=== PATIENT | male | born 1990 | race Caucasian/White ===

== ENCOUNTER 2019-03-22 10:59 | Emergency (ER) | payer BC, SELFPAY ==
[2019-03-22 11:03] VITALS: BP 130/70; PULSE 57; RESP 15; TEMP 37; O2SAT 98
[2019-03-22 11:08] VITALS: BP 118/71; BP 130/70; PULSE 57; PULSE 58
--- NOTE | 2019-03-22 11:18 | ED.GENADUL_ITS ---
Discharge Plan Disposition Patient Disposition: HOME Condition: Improving Discharge Details Chief Complaint: Nausea/Vomit/Diar Clinical Impression: Gastroenteritis Primary Care Provider: Kin Dubois ED Provider: Jonah Reyes Home Meds and New Rx's Prescriptions: New ondansetron HCl [Zofran] 4 mg tablet 4 mg PO QID PRN (Reason: nausea and vomiting) Qty: 10 RF: 0 Discharge Instructions Instructions: Gastroenteritis (ED) Additional Instructions: Home to rest today. Small, frequent sips of fluids to maintain hydration. May use Zofran as needed for nausea. Return if you develop a fever, abdominal pain, recurrent vomiting, or any other acute concerns. Stand Alone Forms: Work Release Medical Decision Making 29-year-old healthy male presents with 12+ hours of loose watery stool with multiple episodes of emesis. He does not have blood in vomit or stool. His vital signs are stable. His exam is reassuring but does reveal mild abdominal tenderness. Differential diagnosis includes gastroenteritis, mesenteric adenitis, dehydration. IV placed, labs obtained, patient given antiemetic, ketorolac, 2 L normal saline. Patient has a unremarkable CBC, chemistries are reassuring, lipase normal. He is improved following fluids. Tolerated fluids by mouth. He likely has a gastroenteritis will benefit from ongoing hydration and use of antiemetic at home. Lab Data Lab results reviewed: Yes I reviewed the patient's lab results. Labs: Laboratory Results - last 24 hr 03/22/19 03/22/19 11:30 11:30 WBC 8.02 RBC 5.26 Hgb 16.1 Hct 46.4 MCV 88.2 MCH 30.6 MCHC 34.7 RDW 12.3 Plt Count 303 MPV 10.0 Immature Gran % 0.4 Neutrophils % 46.3 Lymphocytes % 40.1 Monocytes % 10.3 Eosinophils % 2.5 Basophils % 0.4 Absolute Neutrophils 3.71 Absolute Lymphocytes 3.22 Absolute Monocytes 0.83 H Absolute Eosinophils 0.20 Absolute Basophils 0.03 Sodium 143 Potassium 3.8 Chloride 105 Carbon Dioxide 30.9 Anion Gap 7.1 BUN 16 Creatinine 1.03 Estimated GFR/1.73 m2 >= 60.00 Glucose 95 Calcium 8.5 Total Bilirubin 0.4 AST 19 ALT 35 Alkaline Phosphatase 39 L Total Protein 7.0 Albumin 3.8 Lipase 121 HPI General Mode of arrival: ambulatory . Date/Time Provider Initiated Documentation: 03/22/19 11:05 . Limitations to Documentation: no limitations . Information obtained by: patient . History of Present Illness 29 year old M presents to the emergency department with the chief complaint of Nausea, vomiting, diarrhea, described as moderate, Quality is described as constant, and is localized to the abdomen. Patient reports no radiation. Patient started experiencing this hour(s) and it has been constant. No relieving factors improve symptom(s), No exacerbating factors reported . Patient notes loss of appetite, nausea/vomiting and other (Diarrhea. No bloody stool or emesis). Patient did receive the following treatments prior to arrival, none Related Data Home Medications Medication Instructions Recorded Confirmed ondansetron HCl [Zofran] 4 mg PO QID PRN #10 tab 03/22/19 Previous Rx's Medication Instructions Recorded ondansetron HCl [Zofran] 4 mg PO QID PRN #10 tab 03/22/19 Allergies Allergy/AdvReac Type Severity Reaction Status Date / Time No Known Allergies Allergy Unverified 03/22/19 11:03 General Stated Complaint: Nausea/Vomit/Diar KAREN: 3 Review of Systems Review of Systems Narrative: No suspicious food contacts. No recent travel. 6 systems reviewed and otherwise negative [facility] Social History Smoking/Tobacco Use Status: Current every day Tobacco Type: e-cigarettes Alcohol Intake: never Drug use: Never Substance use type: does not use Do you feel safe at home: Yes Do you feel safe in your relationship?: Yes Exam Narrative Exam Narrative: GEN: awake, alert, oriented 3. Pleasant, well groomed, interactive. HEAD: Normocephalic, atraumatic ENT: Mucous membranes dry, oropharynx unremarkable, External ear exam unremarkable EYES: PERRL, EOMI NECK: Full ROM, no GRAHAM, no menigismus CHEST/RESP: Nontender, clear to auscultation bilateral, no wheeze/rhonchi/rales CARDIOVASCULAR: RRR, no murmur, rub hailey. 2+ Rad pulse bilateral ABDOMEN: Soft, minimal tenderness without rebound or guarding, no mass. +Bowel sounds EXT: Full ROM, no edema, no rash Neuro: Grossly normal neurologic exam, conversant, interactive. Psych: Speech fluent, thoughts congruent, affect normal Course Vital Signs Vital signs: Vital Signs Temperature 37 C 03/22/19 11:03 Pulse 57 L 03/22/19 11:03 Respiratory Rate 15 03/22/19 11:03 Blood Pressure 130/70 03/22/19 11:03 Pulse Oximetry 98 03/22/19 11:03 Temperature 37 C 03/22/19 11:03 Temperature Source Temporal Artery Scan 03/22/19 11:03 Pulse 57 L 03/22/19 11:08 Respiratory Rate 15 03/22/19 11:03 Respiratory Effort Non-Labored 03/22/19 11:07 Blood Pressure 130/70 03/22/19 11:08 Blood Pressure Position Sitting 03/22/19 11:03 Pulse Oximetry 98 03/22/19 11:03 Oxygen Delivery Method Room Air 03/22/19 11:03 Oxygen Flow Rate 0 03/22/19 11:03 Pain Level 8 03/22/19 11:03
[2019-03-22] MEDS: Normal Saline 1,000 ML 1000 ML IV ×2 (11:30→12:30)
[2019-03-22] MEDS: Ondansetron 4 MG/2 ML VIAL IVP (11:32)
[2019-03-22] MEDS: Ketorolac 15 MG/ML VIAL IVP (11:33)
[2019-03-22 11:47] LABS: Abs Immature Grans 0.03 k/cumm (0.0-0.09); Absolute Basophil Count 0.03 k/cumm (0.0-0.2); Absolute Lymphocyte Count 3.22 k/cumm (1.2-3.4); Absolute Monocyte Count 0.83 k/cumm (0.11-0.7); Absolute Neutrophil Count 3.71 k/cumm (1.2-6.7); Basophils % 0.4; Eosinophils % 2.5; HCT 46.4 % (40.0-50.0); HGB 16.1 g/dL (13.5-17.5); Immature Grans % 0.4; Lymphocytes % 40.1; Mean Corp. HGB Concentration 34.7 g/dL (32.0-36.0); Mean Corpuscular Hemoglobin 30.6 pg (27.0-33.0); Mean Corpuscular Volume 88.2 fL (80-95); Monocytes % 10.3; Neutrophils % 46.3; Platelet Count 303 x1000/uL (130-400); RBC 5.26 m/cumm (4.50-6.00); RBC Distribution Width 12.3 % (11.8-14.1); White Blood Cell Count 8.02 k/cumm (4.4-10.8)
[2019-03-22 12:05] LABS: ALT 35 U/L (16-63); AST 19 U/L (15-37); Albumin 3.8 g/dL (3.4-5.0); Alkaline Phosphatase 39 U/L (46-116); Anion Gap 7.1 mmol/L (3-11); BUN 16 mg/dL (7-18); Bilirubin, Total 0.4 mg/dL (0.2-1.0); CO2 30.9 mmol/L (21.0-32.0); CREATININE 1.03 mg/dL (0.70-1.30); Calcium 8.5 mg/dL (8.5-10.1); Chloride 105 mmol/L (98-107); Glucose 95 mg/dL (70-100); Lipase 121 U/L (73-393); Potassium 3.8 mmol/L (3.5-5.1); Sodium 143 mmol/L (136-145)
[2019-03-22 13:35] VITALS: BP 105/57; PULSE 72; RESP 15; TEMP 36.7; O2SAT 100
[2019-03-22 13:41] VITALS: BP 105/57; PULSE 72; RESP 15; TEMP 36.7; O2SAT 100
== END 2019-03-22 13:43 | disposition home or self-care (01) ==
PROVIDERS: Emergency Provider Emergency Medicine; PCP Pediatrics
DX: K52.9 Noninfective gastroenteritis and colitis, unspecified (principal)
CPT/HCPCS: 36415; 80053; 83690; 96361; 96374; 96375; 99284; 85025; J1885; J2405

== ENCOUNTER 2019-05-11 18:54 | Emergency (ER) | payer BC, SELFPAY ==
[2019-05-11 18:58] VITALS: BP 130/67; PULSE 81; RESP 16; TEMP 36.6; O2SAT 97
--- NOTE | 2019-05-11 19:03 | W.ED.GENAD ---
Discharge Plan Disposition Patient Disposition: HOME Condition: Good Discharge Details Chief Complaint: RespSymp Clinical Impression: URI (upper respiratory infection), Vomiting Primary Care Provider: None,None ED Provider: Adrian Reyna Home Meds and New Rx's Prescriptions: New ondansetron HCl [Zofran] 4 mg tablet 4 mg PO Q8H Qty: 7 RF: 0 Discharge Instructions Instructions: Upper Respiratory Infection (ED), Acute Nausea and Vomiting (ED) Additional Instructions: Your strep test is negative, I suspect her symptoms are likely from a virus. Please take Zofran as needed. Please continue to drink plenty of fluids, and avoid any significant solids for the next 48 to 72 hours. I would recommend 10 to 12 cups of fluid per day. gradually increase with oatmeal, rice, bananas and applesauce. If you notice any worsening of your symptoms, or any new symptoms such as vomiting, diarrhea, fever, chills, shortness of breath, chest pain, numbness, weakness, or fainting , please return immediately to the emergency department for reevaluation. Please follow up with your primary care provider as soon as possible for reassessment and reevaluation. As always, it was a pleasure participating in your medical care today. Stand Alone Forms: Work Release Medical Decision Making Is a pleasant 29-year-old male who presents with 48 hours of URI-like symptoms in conjunction with vomiting that began this evening. He has been able to tolerate fluids well and has been drinking throughout the day, urinating regularly. He only vomits when he eats solid foods. He denies any abdominal pain just nausea. Physical exam demonstrates a nontender abdomen, no clinical meningitis, no evidence of acute surgical abdomen. No abnormality in the posterior oropharynx. Signs and symptoms appear clinically consistent with a mild upper respiratory infection, I suspect he has a mild viral gastroenteritis as well. Symptoms appearing consistent with severe flu at this time. He is not a candidate for Tamiflu, and I see no indication for testing for this at this time. Strep test was negative. Patient continues to tolerate liquids well. Will give Zofran as needed for nausea, work note per his request, recommend continued fluids, and rest. Discussed red flags for which to return. I have extensively reviewed the treatment plan and discharge instructions with the patient. I have addressed all patient concerns at this time. The patient was made aware of what symptoms to monitor for that would warrant a return to the emergency department. Discussed the plan with the patient, they demonstrate verbal understanding and agreement with our assessment and plan at this time. HPI General Date/Time Provider Initiated Documentation: 05/11/19 18:55. HPI Narrative: This is a 29-year-old male who presents for runny nose, mild congestion, 2-3 episodes of vomiting that started today. He denies fever, headache, chills. He denies any hematochezia, hematemesis. He denies any alcohol intake. He does not smoke marijuana. He denies any other sick contacts. He has no other complaints at this time. Although he does admit to nausea he denies any abdominal pain. No other complaints at this time. Related Data Home Medications Medication Instructions Recorded Confirmed ondansetron HCl [Zofran] 4 mg PO Q8H #7 tab 05/11/19 Previous Rx's Medication Instructions Recorded ondansetron HCl [Zofran] 4 mg PO Q8H #7 tab 05/11/19 Allergies Allergy/AdvReac Type Severity Reaction Status Date / Time No Known Allergies Allergy Unverified 03/22/19 11:03 General Stated Complaint: RespSymp KAREN: 4 Review of Systems All systems reviewed & are unremarkable except as noted in HPI and below PFSH Social History Smoking/Tobacco Use Status: Current every day Tobacco Type: e-cigarettes Alcohol Intake: never Drug use: Never Substance use type: does not use Do you feel safe at home: Yes Do you feel safe in your relationship?: Yes Exam Narrative Exam Narrative: 1.Const: Well-nourished, Well-developed, appearing stated age 2.Eyes: PERRL, no conjunctival injection, and symmetrical lids. 3.ENT: Atraumatic external nose and ears. Moist MM. Neck: Symmetric, trachea midline, No thyromegaly. No tonsillar exudate, no significant tonsillar swelling. Tympanic membranes are unremarkable bilaterally. Patient demonstrates good movement of cervical neck. There is no nuchal rigidity, no nuchal tenderness. Patient is able to flex the neck without any difficulty or significant pain. Negative Kernig's and Brudzinski sign. 4.CVS: +S1/S2, No murmurs or gallops. Peripheral pulses 2+ and equal in all extremities. Brisk capillary refill in all extremities. 5.RESP: Unlabored respiratory effort. Clear to auscultation bilaterally. No wheezes rales or rhonchi 6.GI: Soft, Nontender/Nondistended, No hepatosplenomegaly. No guarding or rebound. No evidence of an acute surgical abdomen. 7.MSK: Normocephalic/Atraumatic, Extremities w/o deformity or ttp No cyanosis or clubbing, Normal movement of all extremities 8.Skin: Warm, Dry. No rashes or lesions. 9.Neuro: wares sorter II-XII grossly intact. Sensation grossly intact, no focal neurologic deficits. 10.Psych: (AAO) x3. Appropriate mood and affect Course Vital Signs Vital signs: Vital Signs Temperature 36.6 C 05/11/19 18:58 Pulse 81 05/11/19 18:58 Respiratory Rate 16 05/11/19 18:58 Blood Pressure 130/67 05/11/19 18:58 Pulse Oximetry 97 05/11/19 18:58 Temperature 36.6 C 05/11/19 18:58 Temperature Source Skin 05/11/19 18:58 Pulse 81 05/11/19 18:58 Respiratory Rate 16 05/11/19 18:58 Blood Pressure 130/67 05/11/19 18:58 Blood Pressure Position Supine 05/11/19 18:58 Pulse Oximetry 97 05/11/19 18:58 Oxygen Delivery Method Room Air 05/11/19 18:58 Oxygen Flow Rate 0 05/11/19 18:58
[2019-05-11] MEDS: Ondansetron O.D.T. 4 MG TABEF PO (19:06)
== END 2019-05-11 19:15 | disposition home or self-care (01) ==
PROVIDERS: Emergency Provider Student in an Organized Health Care Education/Training Program
DX: J06.9 Acute upper respiratory infection, unspecified (principal); R11.2 Nausea with vomiting, unspecified; R09.81 Nasal congestion
CPT/HCPCS: 87880; 99283; 87081

== ENCOUNTER 2020-08-04 09:16 | Emergency (ER) | payer SELFPAY ==
[2020-08-04 09:23] VITALS: BP 141/78; PULSE 71; RESP 16; TEMP 36.4; O2SAT 98
--- NOTE | 2020-08-04 09:33 | W.ED.GENAD ---
Discharge Plan Disposition Patient Disposition: HOME Condition: Stable Discharge Details Clinical Impression: Nausea vomiting and diarrhea Primary Care Provider: None,None ED Provider: Markel Tate Home Meds and New Rx's Prescriptions: New ondansetron HCl [Zofran] 4 mg tablet 4 mg PO Q8H PRNQty: 10 RF: 0 Discharge Instructions Instructions: Acute Nausea and Vomiting (ED), Acute Diarrhea (ED) Additional Instructions: Laboratory values do not reveal any obvious emergent process. Zofran as directed. Clear liquid diet, advance as tolerated. [id number] Imodium as directed for symptomatic control. Please watch for new or worsening symptoms and return to the ER for any concerns. Lastly, please contact your primary care provider tomorrow to discuss outpatient reevaluation. Work note given for this evening Stand Alone Forms: Work Release Discharge Data Discharge Date/Time-TO BE ENTERED AT DEPARTURE: 08/04/20 11:43 Medical Decision Making 22-year-old gentleman, no significant past medical history, went to bed last night asymptomatic, woke up around midnight with nausea, vomiting, diarrhea, abdominal pain after vomiting. He reports his last episode was sometime around 8-830 this morning. He reports mild nausea now otherwise asymptomatic. Clinically he appears well, nontoxic. Nonsurgical abdominal examination. No sick contact or obvious bad food exposures. Likely viral in nature but certainly cannot rule out etiologies such as appendicitis, biliary colic, etc. Will obtain IV access, give IV fluids, Zofran, CBC, CMP, lipase, urinalysis. Upon reevaluation patient is resting comfortably, reports nausea is improving with the Zofran. Laboratory values are unremarkable for obvious emergent process. Patient unable to provide a urine sample. No vomiting or diarrhea while being observed in the ER. Patient feels well, would like to try to go home and eat. He was given strict return precautions. Given a prescription for Zofran, will take [id number] Imodium, and I gave a work note for tonight. Patient comfortable with this plan and has no additional questions or concerns. Medical Records Medical records reviewed: Yes I reviewed the patient's medical records. Lab Data Lab results reviewed: Yes I reviewed the patient's lab results. Lab results narrative: Laboratory Tests Range/Units 08/04/20 08/04/20 09:35 09:35 WBC (4.4-10.8) 10^3/uL 7.32 RBC (4.36-5.78) 10^6/uL 5.59 Hgb (13.5-17.5) g/dL 17.1 Hct (40.0-50.0) % 49.2 MCV (80-95) fL 88.0 MCH (27.0-33.0) pg 30.6 MCHC (32.0-36.0) % 34.8 RDW (11.8-14.1) % 11.8 Plt Count (130-400) 10^3/uL 330 MPV (8.0-11.0) fL 9.7 Immature Gran % 0.3 Neutrophils % 52.7 Lymphocytes % 35.5 Monocytes % 8.5 Eosinophils % 2.6 Basophils % 0.4 Nucleated RBC % % 0 Absolute Neutrophils (1.2-6.7) 10^3/uL 3.86 Absolute Lymphocytes (1.2-3.4) 10^3/uL 2.60 Absolute Monocytes (0.1-0.8) 10^3/uL 0.62 Absolute Eosinophils (0.0-0.7) 10^3/uL 0.19 Absolute Basophils (0.0-0.2) 10^3/uL 0.03 Sodium (136-145) mmol/L 140 Potassium (3.5-5.1) mmol/L 3.8 Chloride (98-107) mmol/L 103 Carbon Dioxide (21.0-32.0) mmol/L 28.2 Anion Gap (3-11) mmol/L 8.8 BUN (7-18) mg/dL 14 Creatinine (0.70-1.30) mg/dL 1.1 Estimated GFR/1.73 m2 (mL/min/1.73m2) >= 60.00 Glucose (74-106) mg/dL 98 Calcium (8.5-10.1) mg/dL 8.5 Total Bilirubin (0.2-1.0) mg/dL 0.4 AST (15-37) U/L 18 ALT (16-63) U/L 70 H Alkaline Phosphatase (46-116) U/L 48 Total Protein (6.4-8.2) g/dL 7.5 Albumin (3.4-5.0) g/dL 4.0 Lipase (73-393) U/L 111 HPI General Mode of arrival: ambulatory. Date/Time Provider Initiated Documentation: 08/04/20 09:19. Limitations to Documentation: no limitations. Information obtained by: patient. HPI Narrative: This is a 30-year-old male, denies any significant past medical history. He states that he went to bed last night asymptomatic, woke up around midnight with nausea, vomiting, diarrhea. Denies any black tarry stools or bright red blood in his stools. Denies sick contacts or bad food exposure. Reports mild diffuse abdominal pain after vomiting; however, he has not vomited in over 45 minutes and currently denies any abdominal discomfort. Has not taken any [id number]-[id number] medications for his symptoms. Nothing makes his symptoms worse or better. Patient states that he will likely need a work note for tonight. He denies fever, headache, chest pain, shortness of breath, back pain, dysuria, hematuria, or constipation. He states that he feels very hungry but cannot eat because he cannot hold anything down. Related Data Home Medications Medication Instructions Recorded Confirmed ondansetron HCl [Zofran] 4 mg PO Q8H PRN #10 tab 08/04/20 Previous Rx's Medication Instructions Recorded ondansetron HCl [Zofran] 4 mg PO Q8H PRN #10 tab 08/04/20 Allergies Allergy/AdvReac Type Severity Reaction Status Date / Time No Known Allergies Allergy Unverified 03/22/19 11:03 General Stated Complaint: Nausea/Vomit/Diar KAREN: 3 Review of Systems Constitutional Constitutional: Denies fatigue, Denies fever(s) and Denies headache(s) ENT Ears, Nose, Mouth, and Throat: Denies headache(s) Cardiovascular Cardiovascular: Denies chest pain and Denies dyspnea Respiratory Respiratory: Denies dyspnea Gastrointestinal Gastrointestinal: Reports abdominal pain, Denies constipation, Reports diarrhea, Reports nausea and Reports vomiting Genitourinary Genitourinary: Denies dysuria Musculoskeletal Musculoskeletal: Denies back pain Integumentary/Breasts Skin/Breast: Denies rash Neurologic Neurologic: Denies headache(s) Endocrine Endocrine: Denies fatigue [facility] Social History Smoking/Tobacco Use Status: Current every day Tobacco Type: e-cigarettes Smoking risk assessment performed?: Yes Alcohol Intake: never Drug use: Never Substance use type: does not use Do you feel safe at home: Yes Do you feel safe in your relationship?: Yes Exam Const General: cooperative, healthy appearing, comfortable and no acute distress Orientation: alert and awake [facility] Head: normal to inspection, normocephalic and atraumatic Mouth: moist mucous membranes Throat: posterior oropharynx normal Eyes General: appearance normal, both eyes and all related structures Conjunctivae: conjunctivae normal Sclera: sclerae normal Neck Neck: normal visual inspection, full ROM, trachea midline and supple Resp Effort & Inspection: normal respiratory effort and able to speak in complete sentences Auscultation: clear to auscultation bilaterally Cardio Rate: regular rate Rhythm: regular rhythm GI Inspection: normal to inspection Palpation: soft, not firm, no guarding, no pulsatile masses and nontender Auscultation: normal bowel sounds Back/Spine/Pelvis Back: No back tenderness Skin General skin exam: no rashes or lesions noted Neuro General: patient alert, patient awake, moves all extremities and no focal motor deficits Sensory Exam: no sensory deficits noted Psych Appearance: grossly normal Mental Status: mental status grossly normal Course Vital Signs Vital signs: Vital Signs Temperature 36.4 C L 08/04/20 09:23 Pulse 71 08/04/20 09:23 Respiratory Rate 16 08/04/20 09:23 Blood Pressure 141/78 H 08/04/20 09:23 Pulse Oximetry 98 08/04/20 09:23 Temperature 36.4 C L 08/04/20 09:23 Temperature Source Skin 08/04/20 09:23 Pulse 71 08/04/20 09:23 Respiratory Rate 16 08/04/20 09:23 Respiratory Effort 08/04/20 09:25 Blood Pressure 141/78 H 08/04/20 09:23 Blood Pressure Position Sitting 08/04/20 09:23 Pulse Oximetry 98 08/04/20 09:23 Oxygen Delivery Method Room Air 08/04/20 09:23 Oxygen Flow Rate 0 08/04/20 09:23 Pain Level 2 08/04/20 09:23
[2020-08-04] MEDS: Normal Saline 1,000 ML 1000 ML IV (09:35)
[2020-08-04 09:51] LABS: Abs Immature Grans 0.02 10^3/uL (0.0-0.06); Absolute Basophil Count 0.03 10^3/uL (0.0-0.2); Absolute Eosinophil Count 0.19 10^3/uL (0.0-0.7); Absolute Monocyte Count 0.62 10^3/uL (0.1-0.8); Absolute Neutrophil Count 3.86 10^3/uL (1.2-6.7); Basophils % 0.4; Eosinophils % 2.6; HCT 49.2 % (40.0-50.0); HGB 17.1 g/dL (13.5-17.5); Immature Grans % 0.3; Lymphocytes % 35.5; MCH 30.6 pg (27.0-33.0); MCHC 34.8 % (32.0-36.0); MPV 9.7 fL (8.0-11.0); Monocytes % 8.5; Neutrophils % 52.7; Nucleated RBC 0 %; Platelet Count 330 10^3/uL (130-400); RBC 5.59 10^6/uL (4.36-5.78); RDW 11.8 % (11.8-14.1); RDW-SD 38.1 fL; WBC 7.32 10^3/uL (4.4-10.8)
[2020-08-04] MEDS: Ondansetron 4 MG/2 ML VIAL IVP (10:03)
[2020-08-04 10:05] LABS: ALT 70 U/L (16-63); AST 18 U/L (15-37); Alkaline Phosphatase 48 U/L (46-116); Anion Gap 8.8 mmol/L (3-11); BUN 14 mg/dL (7-18); Bilirubin, Total 0.4 mg/dL (0.2-1.0); CO2 28.2 mmol/L (21.0-32.0); CREATININE 1.1 mg/dL (0.70-1.30); Calcium 8.5 mg/dL (8.5-10.1); Chloride 103 mmol/L (98-107); Glucose 98 mg/dL (74-106); Lipase 111 U/L (73-393); Potassium 3.8 mmol/L (3.5-5.1); Sodium 140 mmol/L (136-145); Total Protein 7.5 g/dL (6.4-8.2)
[2020-08-04 11:00] VITALS: BP 114/62; PULSE 61; RESP 16; TEMP 36.6; O2SAT 100
[2020-08-04 11:37] VITALS: BP 123/88; PULSE 69; RESP 18; TEMP 36.6; O2SAT 98
--- NOTE | 2020-08-04 11:44 | NUR.NOTE ---
pt IV dc'd by akash Echavarria. :
--- NOTE | 2020-08-04 11:44 | NUR.NOTE ---
pt did not produce urine spec during stay
== END 2020-08-04 11:43 | disposition home or self-care (01) ==
PROVIDERS: Emergency Provider Physician Assistant
DX: R11.2 Nausea with vomiting, unspecified (principal); R19.7 Diarrhea, unspecified
CPT/HCPCS: 36415; 80053; 83690; 96361; 96374; 99284; 85025; J2405

== ENCOUNTER 2023-04-20 09:21 | Emergency (ER) | payer SELFPAY ==
[2023-04-20 09:29] VITALS: BP 139/89; PULSE 73; RESP 12; TEMP 36.7; O2SAT 97
[2023-04-20 09:36] VITALS: BP 139/89; PULSE 73; RESP 12; TEMP 36.7; O2SAT 97
[2023-04-20] MEDS: Fluorescein STRIPS 100/BOX 2 MG OP (09:52)
--- NOTE | 2023-04-20 10:11 | ED.GENADUL_ITS ---
Discharge Plan Discharge Details Chief Complaint: EyeProblem Clinical Impression: Conjunctivitis Primary Care Provider: None,None ED Provider: Nati Bhandari Home Meds and New Rx's Prescriptions: New erythromycin 5 mg/gram (0.5 %) ointment 0.5 inch ophthalmic (eye) TID Qty: 3.5 0RF Discharge Instructions Instructions: Conjunctivitis (ED) Additional Instructions: Use the erythromycin ointment, half inch strip to each eye Wash your hands with soap and water Return earlier with new or worsening complaints Discharge Data Discharge Date/Time-TO BE ENTERED AT DEPARTURE: 04/20/23 10:24 Medical Decision Making 33-year-old male, upper respiratory symptoms and conjunctivitis reported, family member sick with similar symptoms Pupils equal round reactive to light and accommodation, visual acuity within normal limits, please review nursing documentation, fluorescein stain instilled bilaterally without any lesions, lids everted without foreign body, extraocular muscles intact Lungs clear to auscultation, no acute distress, stable vitals Given erythromycin ointment, will continue supportive care Return precautions reviewed and patient expressed understanding HPI General Date/Time Provider Initiated Documentation: 04/20/23 09:49 . HPI Narrative: This 33-year-old male presents with bilateral eye irritation and drainage drainage. Family is also sick with similar symptoms. reportedly has conjunctivitis and son. Denies any sore throats, fever, shortness of breath. Stop smoking approximately 12 days ago. Related Data Home Medications Medication Instructions Recorded Confirmed erythromycin 5 mg/gram (0.5 %) eye 0.5 inch ophthalmic (eye) TID #3.5 04/20/23 ointment grams Previous Rx's Medication Instructions Recorded erythromycin 5 mg/gram (0.5 %) eye 0.5 inch ophthalmic (eye) TID #3.5 04/20/23 ointment grams Allergies Allergy/AdvReac Type Severity Reaction Status Date / Time No Known Allergies Allergy Unverified 04/20/23 09:49 General Stated Complaint: EyeProblem KAREN: 4 PFSH All Active Problems (Updated 04/20/23 @ 10:20 by JOAN Daniel) Conjunctivitis (Acute) Nausea vomiting and diarrhea (Acute) Social History Smoking/Tobacco Use Status: Former Tobacco Use Quit Date: 04/07/23 Smoking risk assessment performed?: Yes Alcohol Intake: current Alcohol Intake frequency: holidays/special occasions only Alcohol type: beer Drug use: Never Substance use type: does not use Do you feel safe at home: Yes Do you feel safe in your relationship?: Yes Course Vital Signs Vital signs: Vital Signs Temperature 36.7 C 04/20/23 09:29 Pulse 73 04/20/23 09:29 Respiratory Rate 12 04/20/23 09:29 Blood Pressure 139/89 04/20/23 09:29 Pulse Oximetry 97 04/20/23 09:29 Temperature 36.7 C 04/20/23 09:36 Temperature Source Oral 04/20/23 09:36 Pulse 73 04/20/23 09:36 Respiratory Rate 12 04/20/23 09:36 Respiratory Effort Normal, Non-Labored 04/20/23 09:36 Blood Pressure 139/89 04/20/23 09:36 Blood Pressure Position Sitting 04/20/23 09:36 Pulse Oximetry 97 04/20/23 09:36 Oxygen Delivery Method Room Air 04/20/23 09:36 Oxygen Flow Rate 0 04/20/23 09:29 Pain Level 6 04/20/23 09:36 Lab/Test Results Lab/Test Results: 04/20/23 09:43 Tonsil - Not Specified Group A Streptococcus Culture - Pending POC Strep Test-LUCILA(Rapid) Start: 04/20/23 09:50 Freq: .Rapid Strep Test Status: Active Protocol: Document 04/20/23 09:51 JENNIFFER (Rec: 04/20/23 09:52 JENNIFFER [id number]) Strep test-LUCILA(Rapid)-POC POC-Strep test-LUCILA (Rapid) Negative POC-Strep test-LUCILA (Rapid) Negative PAWSS Have you Been Recently Intoxicated or Drunk Within the Last 30 days?: No Have you Ever Experienced Previous Episodes of Alcohol Withdrawal?: No Have you ever Experienced Withdrawal Seizures?: No Have you ever Experienced Delirium Tremens(DT)s?: No Have you ever undergone Alcohol Rehabilitation Treatment (i.e, inpt ot outpatient treatment programs)?: No Have you ever Experienced Blackouts?: No Have you ever Combined Alcohol with other Downers within the last 90 days?: No Have you ever Combined Alcohol with any other Substance of Abuse during the last 90 days?: No Positive Blood Alcohol level on Presentation? [PCS.BAL]: No Evidence of Increased Autonomic Activity (i.e. HR>120, tremor, sweating, agitation, nausea)?: No Result: 0
[2023-04-20 10:23] VITALS: BP 139/89; PULSE 73; RESP 12; TEMP 36.7; O2SAT 97
== END 2023-04-20 10:24 | disposition home or self-care (01) ==
LOC: ER 09:28
PROVIDERS: Emergency Provider Physician Assistant
DX: H10.9 Unspecified conjunctivitis
CPT/HCPCS: 87880; 99283; 87081

== ENCOUNTER 2024-01-16 07:02 | Emergency (ER) | payer SELFPAY ==
[2024-01-16 07:06] VITALS: BP 138/85; PULSE 79; RESP 16; TEMP 36.8; O2SAT 98
[2024-01-16 07:09] VITALS: BP 138/85; PULSE 79; RESP 16; TEMP 36.8; O2SAT 98
--- NOTE | 2024-01-16 07:18 | W.ED.GENAD ---
Discharge Plan Disposition Patient Disposition: Home Condition: Stable Discharge Details Clinical Impression: Nausea vomiting and diarrhea ED Provider: Kristina Lopez Home Meds and New Rx's Prescriptions: New ondansetron 4 mg tablet,disintegrating 4 mg PO Q8H PRN (Reason: nausea and vomiting) Qty: 30 0RF Discharge Instructions Instructions: Nausea and Vomiting, Adult ED Additional Instructions: viral testing is negative today, but since your symptoms just started this may not be accurate. if you're not feeling better you can retest in a few days Zofran given for nausea, you can continue this at home. Make sure to drink lots of water, gatorade to stay hydrated. you may continue to have some vomiting or diarrhea, but as long as its slowing down and you're able to keep liquids down, you should stay hydrated return with any concerns HPI General Date/Time Provider Initiated Documentation: 01/16/24 07:12. Limitations to Documentation: no limitations. Information obtained by: patient. HPI Narrative: 33-year-old gentleman without significant past medical history presents for evaluation of vomiting and diarrhea. He reports that symptoms started about 1 hour ago. He reports that he has vomited multiple times. He reports vomiting and diarrhea associated with crampy abdominal pain. He gets sweaty when he is vomiting but otherwise no known fever. Reports contact with neighbor that has recently been diagnosed with influenza. Denies any unusual foods or poorly cooked foods. States that he felt fine last night when he went to bed. States that his throat feels scratchy. Not significantly painful, but worse after vomiting. Related Data Home Medications ?Medication ?Instructions ?Recorded ?Confirmed ondansetron 4 mg disintegrating 4 mg PO Q8H PRN nausea and 01/16/24 tablet vomiting #30 tabs Previous Rx's ?Medication ?Instructions ?Recorded ondansetron 4 mg disintegrating 4 mg PO Q8H PRN nausea and 01/16/24 tablet vomiting #30 tabs Allergies Allergy/AdvReac Type Severity Reaction Status Date / Time No Known Allergies Allergy Unverified 01/16/24 07:08 General Stated Complaint: Nausea/Vomit/Diar KAREN: 3 Exam Narrative Exam Narrative: Review of Systems: All systems reviewed & are unremarkable except as noted in HPI and below Well-developed, no acute distress afebrile NCAT PERRL, normal conjunctiva tonsills enlarged without exudates shoddy cervical adenopathy RRR Unlabored respiratory effort, CTAB Nondistended abdomen , soft , non tender Course Vital Signs Vital signs: Vital Signs Temperature 36.8 C 01/16/24 07:06 Pulse 79 01/16/24 07:06 Respiratory Rate 16 01/16/24 07:06 Blood Pressure 138/85 01/16/24 07:06 Pulse Oximetry 98 01/16/24 07:06 Temperature 36.8 C 01/16/24 07:09 Temperature Source Oral 01/16/24 07:09 Pulse 79 01/16/24 07:09 Respiratory Rate 16 01/16/24 07:09 Respiratory Effort Normal, Non-Labored 01/16/24 07:10 Blood Pressure 138/85 01/16/24 07:09 Blood Pressure Position Sitting 01/16/24 07:09 Pulse Oximetry 98 01/16/24 07:09 Oxygen Delivery Method Room Air 01/16/24 07:09 Oxygen Flow Rate 0 01/16/24 07:09 Medical Decision Making Emergent evaluation of vomiting and diarrhea. Initial differential includes viral illness such as COVID or influenza, less likely to be strep pharyngitis given the lack of exudates and fever. Abdominal exam is benign so I doubt acute intra-abdominal process. Could be foodborne illness as well. Patient states that he is able to drink some water. Will give ODT Zofran and p.o. challenge. Will fluids well. If patient does not tolerate p.o. challenge, may need IV fluid resuscitation but since the symptoms have only been going on for an hour, I doubt serious electrolyte derangement or dehydration 0840 patient tolerating PO in ED and feeling better. Viral testing negative. Additional zofran for home use provided. RTER precautions advised. Quality:[facility] Health Related Social Needs: No Data to Display PFSH All Active Problems (Updated 01/16/24 @ 08:30 by Kristina oLpez MD) Nausea vomiting and diarrhea (Acute) Social History Smoking/Tobacco Use Status: Former Tobacco Use Quit Date: 04/07/23 Smoking risk assessment performed?: Yes Alcohol Intake: current Alcohol Intake frequency: holidays/special occasions only Alcohol type: beer Drug use: Occasionally Substance use type: marijuana Do you feel safe at home: Yes Do you feel safe in your relationship?: Yes
[2024-01-16] MEDS: Ondansetron O.D.T. 4 MG TABEF 8 MG PO (07:26)
[2024-01-16 08:47] VITALS: BP 127/65; PULSE 63; RESP 16; O2SAT 97
[2024-01-16] MEDS: Ondansetron O.D.T. 4 MG TABEF, 3 TABS/BTL PO (08:48)
== END 2024-01-16 08:47 | disposition home or self-care (01) ==
LOC: ER 09:00
PROVIDERS: Emergency Provider Emergency Medicine
DX: R11.2 Nausea with vomiting, unspecified (principal); R07.0 Pain in throat; R53.1 Weakness; R19.7 Diarrhea, unspecified
CPT/HCPCS: 99283; 99282

== ENCOUNTER 2024-01-31 15:52 | Emergency (ER) | payer SELFPAY ==
[2024-01-31 16:09] VITALS: BP 143/82; PULSE 91; RESP 22; TEMP 36.6; O2SAT 97
--- NOTE | 2024-01-31 16:12 | ED.GENADUL_ITS ---
Discharge Plan Disposition Patient Disposition: Home Discharge Details Clinical Impression: Chlamydia Primary Care Provider: Unknown,Unknown ED Provider: Nati Bhandari Home Meds and New Rx's Prescriptions: New doxycycline hyclate 100 mg capsule 100 mg PO BID Qty: 14 0RF Continued ondansetron 4 mg tablet,disintegrating 4 mg PO Q8H PRN (Reason: nausea and vomiting) Qty: 30 0RF Discharge Instructions Instructions: Sexually Transmitted Infections ED Additional Instructions: take antibiotics as prescribed yogurt daily while on antibiotic recommend confirmatory testing, however cost is a limiting factor recommend test of cure in 2 weeks recommend refraining from sexual activity until test of cure and using condoms/protection with intercourse return earlier with fever, rashes, or should you develop new or worsening complaints Discharge Data Discharge Date/Time-TO BE ENTERED AT DEPARTURE: 01/31/24 16:19 HPI General Date/Time Provider Initiated Documentation: 01/31/24 15:53 . HPI Narrative: This 33-year-old male presents with report of partner being diagnosed with chlamydia recently. Patient states he engaged in intercourse with a new partner approximately a week ago and she was diagnosed with chlamydia today. He did not have protected intercourse. He is asymptomatic. Related Data Home Medications ?Medication ?Instructions ?Recorded ?Confirmed ondansetron 4 mg disintegrating 4 mg PO Q8H PRN nausea and 01/16/24 tablet vomiting #30 tabs doxycycline hyclate 100 mg capsule 100 mg PO BID #14 caps 01/31/24 Previous Rx's ?Medication ?Instructions ?Recorded ondansetron 4 mg disintegrating 4 mg PO Q8H PRN nausea and 01/16/24 tablet vomiting #30 tabs doxycycline hyclate 100 mg capsule 100 mg PO BID #14 caps 01/31/24 Allergies Allergy/AdvReac Type Severity Reaction Status Date / Time No Known Allergies Allergy Unverified 01/16/24 07:08 General KAREN: 3 Exam Narrative Exam Narrative: Alert and oriented, no acute distress, speaking complete sentences Medical Decision Making 33-year-old male presenting with concern for exposure to chlamydia, patient does not have medical insurance and is concerned that he is going to receive a large bill. He asked that we do the minimum workup that we feel comfortable doing. He does have a documented chlamydia test result from a previous partner without protection exposure. At this time we will treat with doxycycline for 14 days and recommendation for test of cure at urgent care. Patient is encouraged to follow-up closely in the outpatient setting and you will be placed on follow-up list to establish care with a primary care physician. Quality:SDOH Health Related Social Needs: No Data to Display PFSH All Active Problems (Updated 01/31/24 @ 16:05 by JOAN Daniel) Chlamydia (Acute) Nausea vomiting and diarrhea (Acute) Social History Smoking/Tobacco Use Status: Former Tobacco Use Quit Date: 04/07/23 Smoking risk assessment performed?: Yes Alcohol Intake: current Alcohol Intake frequency: holidays/special occasions only Alcohol type: beer Drug use: Occasionally Substance use type: marijuana Housing: apartment Do you feel safe at home: Yes Do you feel safe in your relationship?: Yes
--- NOTE | 2024-02-06 09:13 | NUR.NOTE ---
Nursing Note: Received call from patient that he was seen recently and currently on Doxycycline. Pt feels increased pain in his right testicle, dizzy/hot and feels like I'm going to pass out. Pt was advised that he should be seen and re-evaluated PAOLO. Pt verbalized understanding.
== END 2024-01-31 16:19 | disposition home or self-care (01) ==
PROVIDERS: Emergency Provider Physician Assistant
DX: A74.9 Chlamydial infection, unspecified (principal)
CPT/HCPCS: 99283

== ENCOUNTER 2024-02-06 13:15 | Emergency (ER) | payer SELFPAY ==
[2024-02-06] VITALS (15 sets, daily range): BP systolic 105–136; BP diastolic 42–78; PULSE 50–75; RESP 8–24; TEMP 36.6; O2SAT 96–100
[2024-02-06 14:26] LABS: Bilirubin Negative (Negative); Blood Negative (Negative); Clarity Clear (Clear); Glucose Negative (Negative); Ketones Negative (Negative); Leukocyte Esterase Negative (Negative); Nitrite Negative (Negative); Specific Gravity 1.025 (1.005-1.025); Urobilinogen 0.2 mg/dL (Up to 0.2); pH 5.5 (5-8)
--- NOTE | 2024-02-06 15:30 | DI.CT_ITS ---
Exam(s) CT ABDOMEN PELVIS WO EXAM: CT ABDOMEN PELVIS WO CLINICAL HISTORY: right flank pain. TECHNIQUE: Imaging Protocol: Axial computed tomography images with coronal and sagittal reformatted images were created and reviewed. Oral: no COMPARISON: No exams were available for comparison FINDINGS: Lung Bases: No acute findings. Liver: Normal density. No suspicious mass. Gallbladder and biliary tract: No radiodense calculus or biliary dilation. Pancreas: Normal density. No abnormal calcifications or inflammatory process. Spleen: Normal. Kidneys: Normal size, contour and axis. Punctate nonobstructing stone mid to lower pole right kidney. No obstructive uropathy. No suspicious masses seen. Adrenal glands: No masses seen. Lymph nodes: Within normal limits. Vasculature: Abdominal aorta non-dilated. Soft tissues: Unremarkable. Bladder: No wall thickening. No mass or calculi. Bowel: No obstruction or bowel wall thickening. Peritoneal cavity: No ascites. No focal collection. No mesenteric inflammatory response. Reproductive organs: Unremarkable. Bones: Degenerative changes lower thoracic spine. IMPRESSION: No acute abnormality in the abdomen or pelvis. Tiny nonobstructing stone right kidney. RADIATION DOSE DELIVERED: 356.59mGy.cm Total DLP DATA REPOSITORY: All CT scans at this facility are submitted to the National Radiology Data Registry (NRDR) Dose Index Registry (DIR) with the [employer] (ACR). RADIATION OPTIMIZATION: All CT scans at this facility use at least one of these dose optimization te chniques: automated exposure control; mA and/or kV adjustment per patient size (includes targeted exa ms where dose is matched to clinical indication); or iterative reconstruction.
[2024-02-06] MEDS: Ondansetron O.D.T. 4 MG TABEF PO (15:40)
[2024-02-06] MEDS: Ketorolac 10 MG TAB PO (15:40)
[2024-02-06 15:49] LABS: Abs Immature Grans 0.03 10^3/uL (0.0-0.06); Absolute Basophil Count 0.04 10^3/uL (0.0-0.2); Absolute Eosinophil Count 0.11 10^3/uL (0.0-0.7); Absolute Lymphocyte Count 2.39 10^3/uL (1.2-3.4); Absolute Monocyte Count 0.66 10^3/uL (0.1-0.8); Absolute Neutrophil Count 5.19 10^3/uL (1.2-6.7); Basophils % 0.5 %; Eosinophils % 1.3 %; HGB 17.1 g/dL (13.5-17.5); Immature Grans % 0.4 %; Lymphocytes % 28.4 %; MCH 30.6 pg (27.0-33.0); MCHC 34.2 % (32.0-36.0); MCV 89 fL (80-95); MPV 9.2 fL (8.0-11.0); Monocytes % 7.8 %; Neutrophils % 61.6 %; Platelet Count 308 10^3/uL (130-400); RBC 5.59 10^6/uL (4.36-5.78); RDW 11.9 % (11.8-14.1); RDW-SD 38.5 fL; WBC 8.42 10^3/uL (4.4-10.8)
--- NOTE | 2024-02-06 15:50 | NUR.NOTE ---
Nursing Note: Notified by Phlebotomy that patient was feeling light headed after lab draw. Pt was found to be laying on stretcher pale/diaphoretic but alert. States this happens often w/blood draw. HR 38, BP 81/39. Pt was placed in trendelenburg position and apple juice provided. Pt quickly got coloring back in lips & BP up to 105/42 w/HR of 50. Pt remains on stretcher w/side rails up, cool clothes on head, on continuos monitoring. is aware.
--- NOTE | 2024-02-06 15:53 | ED.GENADUL_ITS ---
Discharge Plan Disposition Patient Disposition: Home Condition: Stable Discharge Details Clinical Impression: Right flank pain, Right renal stone Primary Care Provider: Unknown,Unknown ED Provider: Kristina Lopez Home Meds and New Rx's Prescriptions: New tamsulosin [Flomax] 0.4 mg capsule 0.4 mg PO DAILY Qty: 30 0RF ondansetron 4 mg tablet,disintegrating 4 mg PO Q6H PRN (Reason: nausea and vomiting) Qty: 20 0RF No Action doxycycline hyclate 100 mg capsule 100 mg PO BID Qty: 14 0RF Discharge Instructions Instructions: Kidney Stone, Adult ED Additional Instructions: you do have a kidney stone on the right take flomax until complete take zofran as needed for nausea and can take motrin or tylenol as needed for pain continue the doxy until finished. always take with food return if not tolerating meds, have worsening pain, inability to urinate Stand Alone Forms: Work Release HPI General Date/Time Provider Initiated Documentation: 02/06/24 13:55 . Limitations to Documentation: no limitations . Information obtained by: patient . HPI Narrative: 33-year-old gentleman without significant past medical history presents for evaluation of right flank pain. He reports that he recently had sexual intercourse with a partner that tested positive for chlamydia. He has been on empiric treatment for exposure. He is on day 5 of 7 of doxycycline. He reports that since he started taking the medication he has been having some right sided abdominal pain. Some nausea when he does take the medication without food. No fever or vomiting. No change in bowels. He denies any dysuria, hematuria, urinary urgency or frequency. He reports the pain is been located in the right upper quadrant area and radiates down to the groin. Today the pain was very severe. It is since improved. He denies any pain in his testicles at this time. He denies any penile lesions or discharge. Related Data Home Medications ?Medication ?Instructions ?Recorded ?Confirmed doxycycline hyclate 100 mg capsule 100 mg PO BID #14 caps 01/31/24 02/06/24 ondansetron 4 mg disintegrating 4 mg PO Q6H PRN nausea and 02/06/24 tablet vomiting #20 tabs tamsulosin 0.4 mg capsule (Flomax) 0.4 mg PO DAILY #30 caps 02/06/24 Previous Rx's ?Medication ?Instructions ?Recorded doxycycline hyclate 100 mg capsule 100 mg PO BID #14 caps 01/31/24 ondansetron 4 mg disintegrating 4 mg PO Q6H PRN nausea and 02/06/24 tablet vomiting #20 tabs tamsulosin 0.4 mg capsule (Flomax) 0.4 mg PO DAILY #30 caps 02/06/24 Allergies Allergy/AdvReac Type Severity Reaction Status Date / Time No Known Allergies Allergy Verified 02/06/24 13:32 General Stated Complaint: Abd Prob KAREN: 3 Exam Narrative Exam Narrative: Review of Systems: All systems reviewed & are unremarkable except as noted in HPI and below Well-developed, no acute distress RRR Unlabored respiratory effort Nondistended abdomen , RUq discomfort, no CVAT, no suprapubic tenderness No rashes or lesions. Course Vital Signs Vital signs: Vital Signs Temperature 36.6 C 02/06/24 13:27 Pulse 75 02/06/24 13:27 Respiratory Rate 16 02/06/24 13:27 Blood Pressure 136/78 02/06/24 13:27 Pulse Oximetry 98 02/06/24 13:27 Temperature 36.6 C 02/06/24 13:27 Temperature Source Temporal Artery Scan 02/06/24 13:27 Pulse 75 02/06/24 13:27 Respiratory Rate 16 02/06/24 13:27 Respiratory Effort Normal 02/06/24 13:32 Blood Pressure 136/78 02/06/24 13:27 Blood Pressure Position Sitting 02/06/24 13:27 Pulse Oximetry 98 02/06/24 13:27 Oxygen Delivery Method Room Air 02/06/24 13:27 Oxygen Flow Rate 0 02/06/24 13:27 Pain Level 5 02/06/24 13:27 Lab/Test Results Lab/Test Results: Laboratory Tests Range/Units 02/06/24 02/06/24 14:20 15:42 WBC (4.4-10.8) 10^3/uL 8.42 RBC (4.36-5.78) 10^6/uL 5.59 Hgb (13.5-17.5) g/dL 17.1 Hct (40.0-50.0) % 50.0 MCV (80-95) fL 89 MCH (27.0-33.0) pg 30.6 MCHC (32.0-36.0) % 34.2 RDW (11.8-14.1) % 11.9 Plt Count (130-400) 10^3/uL 308 MPV (8.0-11.0) fL 9.2 Immature Gran % % 0.4 Neutrophils % % 61.6 Lymphocytes % % 28.4 Monocytes % % 7.8 Eosinophils % % 1.3 Basophils % % 0.5 Nucleated RBC % (0.0-0.3) % 0.0 Absolute Neutrophils (1.2-6.7) 10^3/uL 5.19 Absolute Lymphocytes (1.2-3.4) 10^3/uL 2.39 Absolute Monocytes (0.1-0.8) 10^3/uL 0.66 Absolute Eosinophils (0.0-0.7) 10^3/uL 0.11 Absolute Basophils (0.0-0.2) 10^3/uL 0.04 Urine Color (Yellow) Yellow Urine Clarity (Clear) Clear Urine pH (5-8) 5.5 Ur Specific [place] (1.005-1.025) 1.025 Urine Protein (Neg-Trace) mg/dL Negative Urine Ketones (Negative) mg/dL Negative Urine Blood (Negative) Negative Urine Nitrite (Negative) Negative Urine Bilirubin (Negative) Negative Urine Urobilinogen (Up to 0.2) mg/dL 0.2 Ur Leukocyte Esterase (Negative) Negative Urine Glucose (Negative) mg/dL Negative Medical Decision Making Emergent evaluation of right flank pain. Patient is currently being empirically treated for chlamydia exposure. He is on doxycycline. He does not have fever. He is not currently having testicular pain. His abdominal pain is located in the right upper quadrant but radiates like a kidney stone. Other considerations include cholelithiasis. I recommended IV placement, lab work, fluid resuscitation and CT imaging. The patient declines IV placement at this time. He agrees to blood work and CT. I recommended IV fluids since he says that he has had poor oral intake this week, but he says he will drink some more water. Lab work reviewed. No leukocytosis or anemia. LFTs within normal limits. Creatinine is 1.1 which seems to be the patient's baseline. The urinalysis is without any infection. The CT scan does indicate that there is a right renal stone. Patient's symptoms seem to be well controlled. Advised increased water intake. Will start Flomax. Recommend close follow-up with PCP. Return precautions advised Quality:SDOH Health Related Social Needs: No Data to Display PFSH All Active Problems (Updated 02/06/24 @ 17:28 by Kristina Lopez MD) Right renal stone (Acute) Right flank pain (Acute) Chlamydia (Acute) Nausea vomiting and diarrhea (Acute) Social History Smoking/Tobacco Use Status: Former Tobacco Use Quit Date: 04/07/23 Smoking risk assessment performed?: Yes Alcohol Intake: current Alcohol Intake frequency: holidays/special occasions only Alcohol type: beer Drug use: Occasionally Substance use type: marijuana Housing: apartment Do you feel safe at home: Yes Do you feel safe in your relationship?: Yes
[2024-02-06 16:05] LABS: ALT 37 U/L (16-63); AST 18 U/L (15-37); Albumin 4.2 g/dL (3.4-5.0); Alkaline Phosphatase 45 U/L (46-116); Anion Gap 6.4 mmol/L (3-11); BUN 9 mg/dL (7-18); Bilirubin, Total 0.65 mg/dL (0.2-1.0); CO2 29.6 mmol/L (21.0-32.0); CREATININE 1.1 mg/dL (0.70-1.30); Calcium 9.4 mg/dL (8.5-10.1); Chloride 100 mmol/L (98-107); Estimated GFR 92.04 (mL/min/1.73m2); Glucose 94 mg/dL (74-106); Potassium 3.6 mmol/L (3.5-5.1); Sodium 136 mmol/L (136-145); Total Protein 7.6 g/dL (6.4-8.2)
--- NOTE | 2024-02-06 17:20 | DI.VRAD_ITS ---
PROCEDURE INFORMATION: Exam: CT Abdomen And Pelvis Without Contrast Exam date and time: 02/06/2024 4:07 PM Age: 33 years old Clinical indication: Other: Right flank pain TECHNIQUE: Imaging protocol: Computed tomography of the abdomen and pelvis without contrast. Radiation optimization: All CT scans at this facility use at least one of these dose optimization techniques: automated exposure control; mA and/or kV adjustment per patient size (includes targeted exams where dose is matched to clinical indication); or iterative reconstruction. COMPARISON: No relevant prior studies available. FINDINGS: Liver: Homogeneous. Gallbladder and biliary ducts: Normal. No calcified stones. No ductal dilation. Pancreas: Normal. No ductal dilation. Spleen: Normal. No splenomegaly. Adrenal glands: Normal. No mass. Kidneys and ureters: Nonobstructive right renal calculus, series 2, image 258.. No hydronephrosis. Stomach and bowel: No obstruction. There are some fluid levels in the sigmoid colon which can be seen with diarrhea. There is also some scattered wall prominence to the sigmoid colon which can be seen with underdistention. Findings should be correlated with any concern for colitis. Appendix: No evidence of appendicitis. Intraperitoneal space: Unremarkable. No free air. No significant fluid collection. Vasculature: There is some fat stranding near the origin of the celiac artery. No abdominal aortic aneurysm. Lymph nodes: Unremarkable. No enlarged lymph nodes. Urinary bladder: Urinary bladder wall prominence. This can be seen with infection or underdistention. Reproductive: Unremarkable as visualized. Bones/joints: There is mild anterior wedging of vertebral bodies T12 and L1. This is favored to be chronic however clinical correlation is recommended. Soft tissues: Unremarkable. IMPRESSION: 1. Nonobstructive right renal calculus. No hydronephrosis. 2.There are some fluid levels in the sigmoid colon which can be seen with diarrhea. There is also some scattered wall prominence to the sigmoid colon which can be seen with underdistention. Findings should be correlated with any concern for colitis. 3. Urinary bladder wall prominence. This can be seen with infection or underdistention. 4. There is mild anterior wedging of vertebral bodies T12 and L1. This is favored to be chronic however clinical correlation is recommended. 5. There is some fat stranding near the origin of the celiac artery. This is a nonspecific finding that can be seen chronically or with infectious or inflammatory processes. If vasculitis or other vascular abnormality is a concern, a dedicated CTA could be obtained. Other findings/details as above. Dictated and Authenticated by: Emmy Nicholas MD. Ordering:RUBIN Rob MD
== END 2024-02-06 17:50 | disposition home or self-care (01) ==
PROVIDERS: Emergency Provider Emergency Medicine
DX: N20.0 Calculus of kidney (principal); Z87.891 Personal history of nicotine dependence; R10.11 Right upper quadrant pain
CPT/HCPCS: 80053; 99284; 74176; 81003; 85025; 99283

== ENCOUNTER 2024-06-18 07:37 | Emergency (ER) | payer BC, SELFPAY ==
[2024-06-18 07:41] VITALS: BP 144/79; PULSE 68; RESP 16; TEMP 36.5; O2SAT 96
--- NOTE | 2024-06-18 07:45 | DI.CT_ITS ---
Exam(s) CT HEAD WO EXAM: CT HEAD WO CLINICAL HISTORY: severe headache. TECHNIQUE: Imaging Protocol: Axial computed tomography images with coronal and sagittal reformatted images were created and reviewed COMPARISON: No exams were available for comparison FINDINGS: Ventricles and Extra axial spaces: Normal in size and morphology for the patient's age. Hemorrhage: None. Cerebral parenchyma: No evidence of acute infarct or mass. Aberrant vessel seen extending from the v ein of [place] inferiorly to the midline of the right cerebellum. Midline shift: None. Brainstem/Cerebellum: Normal. Calvarium: Normal. Visualized Paranasal sinuses:Mucous retention cyst versus polyp in the left maxillary sinus. Mastoids: Clear. Soft Tissues: Unremarkable. ORBITS: Unremarkable. PITUITARY: Not enlarged. IMPRESSION: No acute intracranial process. 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 RADIATION DOSE DELIVERED: Total DLP DATA REPOSITORY: All CT scans at this facility are submitted to the National Radiology Data Registry (NRDR) Dose Index Registry (DIR) with the [employer] (ACR). RADIATION OPTIMIZATION: All CT scans at this facility use at least one of these dose optimization te chniques: automated exposure control; mA and/or kV adjustment per patient size (includes targeted exa ms where dose is matched to clinical indication); or iterative reconstruction.
[2024-06-18 07:51] VITALS: BP 144/79; PULSE 68; RESP 16; TEMP 36.5; O2SAT 96
--- NOTE | 2024-06-18 08:02 | ED.GENADUL_ITS ---
Discharge Plan Disposition Patient Disposition: Home Condition: Stable Discharge Details Clinical Impression: Nausea vomiting and diarrhea Primary Care Provider: Unknown,Unknown ED Provider: Sam Wolff Home Meds and New Rx's Prescriptions: New ondansetron 4 mg tablet,disintegrating 4 mg PO Q8H PRN (Reason: nausea and vomiting) Qty: 30 0RF Discharge Instructions Additional Instructions: Your labs and CAT scan did not show any concerning findings. The CT did show a prominent vessel in your head which you likely have for a while and is not the cause of your headache. I would recommend discussing this with your primary care provider as you may need follow-up imaging such as an MRI If you feel more ill, have severe worsening pain or persistent vomiting despite the medication return to the emergency department for reevaluation Stand Alone Forms: Work Release HPI General Mode of arrival: ambulatory . Date/Time Provider Initiated Documentation: 06/18/24 07:40 . Limitations to Documentation: no limitations . Information obtained by: patient . History of Present Illness 34 year old M presents to the emergency department with the chief complaint of n/v, headache, described as moderate, Patient reports no radiation. and it has been constant. No relieving factors improve symptom(s), No exacerbating factors reported . Patient notes no other symptoms. and nausea/vomiting; denies cough, fever/chills and shortness of breath. Patient did receive the following treatments prior to arrival, none Related Data Home Medications ?Medication ?Instructions ?Recorded ?Confirmed ondansetron 4 mg disintegrating 4 mg PO Q8H PRN nausea and 06/18/24 tablet vomiting #30 tabs Previous Rx's ?Medication ?Instructions ?Recorded ondansetron 4 mg disintegrating 4 mg PO Q8H PRN nausea and 06/18/24 tablet vomiting #30 tabs Allergies Allergy/AdvReac Type Severity Reaction Status Date / Time No Known Allergies Allergy Verified 06/18/24 07:47 General Stated Complaint: Nausea/Vomit/Diar KAREN: 3 Review of Systems All systems reviewed & are unremarkable except as noted in HPI and below Constitutional Constitutional: Denies chills, Denies fever(s), Reports headache(s) and Denies weakness Eyes Eyes: Denies loss of vision ENT Ears, Nose, Mouth, and Throat: Reports headache(s) Cardiovascular Cardiovascular: Denies chest pain and Denies dyspnea Respiratory Respiratory: Denies cough and Denies dyspnea Gastrointestinal Gastrointestinal: Denies abdominal pain, Reports nausea and Reports vomiting Neurologic Neurologic: Reports headache(s), Denies loss of vision and Denies weakness Endocrine Endocrine: Denies cold intolerance Exam Const General: no acute distress Orientation: alert [facility] Head: normal to inspection Ears: external ears normal General nose exam: external nose normal Mouth: moist mucous membranes Eyes General: appearance normal, both eyes and all related structures Neck Neck: normal visual inspection Resp Effort & Inspection: normal respiratory effort and able to speak in complete sentences Auscultation: clear to auscultation bilaterally Cardio Jugular venous pressure: no JVD Rate: regular rate Heart Sounds: no murmurs GI Palpation: soft and nontender Skin General skin exam: no rashes or lesions noted Neuro General: patient alert and patient oriented x3 Cranial Nerves: CN's II-XI intact bilaterally Cognition: normal cognition Speech: speech normal Gait: normal gait Motor: muscle tone normal throughout Extrem General: normal to inspection Psych Mental Status: mental status grossly normal Course Vital Signs Vital signs: Vital Signs Temperature 36.5 C 06/18/24 07:41 Pulse 68 06/18/24 07:41 Respiratory Rate 16 06/18/24 07:41 Blood Pressure 144/79 H 06/18/24 07:41 Pulse Oximetry 96 06/18/24 07:41 Temperature 36.5 C 06/18/24 07:51 Temperature Source Oral 06/18/24 07:51 Pulse 68 06/18/24 07:51 Respiratory Rate 16 06/18/24 07:51 Blood Pressure 144/79 H 06/18/24 07:51 Blood Pressure Position Sitting 06/18/24 07:51 Pulse Oximetry 96 06/18/24 07:51 Oxygen Delivery Method Room Air 06/18/24 07:51 Oxygen Flow Rate 0 06/18/24 07:51 Pain Level 7 06/18/24 07:51 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 Denies any fever so he has not checked his temperature. He denies any recent travel. He denies any IV drug use. No cough. No abdominal pain. He has alert oriented x 4 on arrival with a normal gait. He has no abdominal tenderness on exam. Clear lung sounds. Cranial nerves II through XII are intact and he has no focal motor or sensation deficits on exam. I suspect his headache is from mild dehydration but given he has no history of migraines and says this is a source of his life will obtain CT head to evaluate for possible hemorrhage. He has no meningismus to suggest [employer] infection. No abdominal tenderness so doubt entities such as small bowel obstruction or other surgical pathology so do not feel imaging of his abdomen is indicated. I suspect he probably has norovirus or some food related illness. Given the IV fluid shortage will treat his nausea with droperidol and try p.o. challenge. Patient stable and feels better. Labs unremarkable. CT shows no acute findings. They do mention prominent vessel extending from the vein of Solorzano into the right cerebellum. Cannot exclude vascular malformation. I discussed this result with the patient and he is likely at this for a while and unlikely related to his current symptoms. Advised that he follow-up with his PCP for potentially further imaging. I suspect he has a gastroenteritis and likely norovirus given he was exposed to this per patient. He is stable for discharge and will follow-up with his PCP, return precautions given Differential Diagnosis Differential Diagnosis: Migraine, norovirus, hemorrhage Lab Data Lab results reviewed: Yes I reviewed the patient's lab results. Quality:SDOH Health Related Social Needs: No Data to Display PFSH All Active Problems (Updated 06/18/24 @ 09:38 by Sam Wolff MD) Nausea vomiting and diarrhea (Acute) Social History Smoking/Tobacco Use Status: Former Tobacco Use Quit Date: 04/07/23 Smoking risk assessment performed?: Yes Alcohol Intake: current Alcohol Intake frequency: holidays/special occasions only Alcohol type: beer Drug use: Occasionally Substance use type: marijuana Housing: apartment Do you feel safe at home: Yes Do you feel safe in your relationship?: Yes PAWSS Have you Been Recently Intoxicated or Drunk Within the Last 30 days?: No Have you Ever Experienced Previous Episodes of Alcohol Withdrawal?: No Have you ever Experienced Withdrawal Seizures?: No Have you ever Experienced Delirium Tremens(DT)s?: No Have you ever undergone Alcohol Rehabilitation Treatment (i.e, inpt ot outpatient treatment programs)?: No Have you ever Experienced Blackouts?: No Have you ever Combined Alcohol with other Downers within the last 90 days?: No Have you ever Combined Alcohol with any other Substance of Abuse during the last 90 days?: No Positive Blood Alcohol level on Presentation? [PCS.BAL]: No Evidence of Increased Autonomic Activity (i.e. HR>120, tremor, sweating, agitation, nausea)?: No Result: 0
[2024-06-18 08:21] LABS: Abs Immature Grans 0.04 10^3/uL (0.0-0.06); Absolute Basophil Count 0.04 10^3/uL (0.0-0.2); Absolute Eosinophil Count 0.16 10^3/uL (0.0-0.7); Absolute Monocyte Count 0.51 10^3/uL (0.1-0.8); Absolute Neutrophil Count 3.97 10^3/uL (1.2-6.7); Basophils % 0.6 %; Eosinophils % 2.4 %; HCT 48.1 % (40.0-50.0); HGB 16.3 g/dL (13.5-17.5); Immature Grans % 0.6 %; Lymphocytes % 29.8 %; MCHC 33.9 % (32.0-36.0); MCV 88 fL (80-95); Monocytes % 7.6 %; Platelet Count 340 10^3/uL (130-400); RBC 5.44 10^6/uL (4.36-5.78); RDW-SD 39.1 fL; WBC 6.72 10^3/uL (4.4-10.8)
[2024-06-18] MEDS: Normal Saline Flush 10 ML SYR IVP (08:29)
[2024-06-18 08:39] LABS: ALT 36 U/L (16-63); AST 15 U/L (15-37); Albumin 3.7 g/dL (3.4-5.0); Alkaline Phosphatase 47 U/L (46-116); Anion Gap 6.6 mmol/L (3-11); BUN 17 mg/dL (7-18); Bilirubin, Total 0.32 mg/dL (0.2-1.0); CO2 30.4 mmol/L (21.0-32.0); CREATININE 1.2 mg/dL (0.70-1.30); Calcium 8.8 mg/dL (8.5-10.1); Chloride 107 mmol/L (98-107); Glucose 109 mg/dL (74-106); Sodium 144 mmol/L (136-145); Total Protein 7.1 g/dL (6.4-8.2)
[2024-06-18 08:53] LABS: COVID-19 PCR Negative (Negative); Influenza A PCR Negative (Negative); Influenza B PCR Negative (Negative); RSV PCR Negative (Negative)
[2024-06-18 08:55] LABS: Source Nasopharynx
--- NOTE | 2024-06-18 09:09 | DI.VRAD_ITS ---
PROCEDURE INFORMATION: Exam: CT Head Without Contrast Exam date and time: 06/18/2024 8:47 AM Age: 34 years old Clinical indication: Pain; Headache not specified TECHNIQUE: Imaging protocol: Computed tomography of the head without contrast. COMPARISON: No relevant prior studies available. FINDINGS: Brain: No intracranial hemorrhage appreciated. No significant focal mass effect or significant midline shift. Prominent vessel extending from the vein of Sea into the right cerebellum. Cannot exclude vascular malformation. Consider follow-up. Cerebral ventricles: No disproportionate ventriculomegaly. Paranasal sinuses: Mucosal retention cyst versus polyp in the left maxillary sinus. Mastoid air cells: No mastoid effusion. Bones: No acute cranial vault fracture seen. Soft tissues: No acute findings. IMPRESSION: 1. No acute intracranial abnormality is appreciated. 2. Nonacute findings for which follow-up may be indicated, as outlined above. Dictated and Authenticated by: Natalia Swain MD. Ordering:LALY Vargas MD
[2024-06-18 09:43] VITALS: RESP 16; O2SAT 100
== END 2024-06-18 09:43 | disposition home or self-care (01) ==
PROVIDERS: Emergency Provider Emergency Medicine
DX: R11.2 Nausea with vomiting, unspecified (principal); R19.7 Diarrhea, unspecified; R51.9 Headache, unspecified; R42 Dizziness and giddiness
CPT/HCPCS: 36415; 80053; 87637; 96374; 99284; 70450; 83735; 85025; J1790

== ENCOUNTER 2024-08-27 06:18 | Emergency (ER) | payer BC, SELFPAY ==
[2024-08-27 06:24] VITALS: BP 142/83; PULSE 110; RESP 18; TEMP 37.5; O2SAT 95
--- NOTE | 2024-08-27 06:25 | ED.GENADUL_ITS ---
Discharge Plan Disposition Patient Disposition: Home Condition: Good Discharge Details Clinical Impression: Influenza-like illness Primary Care Provider: Unknown,Unknown ED Provider: Chad Georges and New Rx's Prescriptions: New ondansetron 4 mg tablet,disintegrating 4 mg PO Q8H PRNQty: 10 0RF Discharge Instructions Instructions: Flu, Adult ED Additional Instructions: You were seen for flulike illness and while you are initial swab is negative if symptoms are consistent with influenza. Rest and hydrate at home. Ondansetron as needed to control nausea and vomiting. Take acetaminophen or ibuprofen to control fever and pain. Follow-up with primary care late next week if not improving. Return to ED for any lethargy or mental status change, shortness of breath, persistent vomiting, other concerns. Stand Alone Forms: Work Release HPI General Mode of arrival: ambulatory . Date/Time Provider Initiated Documentation: 08/27/24 06:25 . Limitations to Documentation: no limitations . Information obtained by: patient and RN notes reviewed . HPI Narrative: Patient presents to ED with onset of fever, chills, body aches, congestion, nausea and vomiting overnight. Patient reports family all with the flu and/or COVID. He had been doing fine until overnight. Biggest complaint is nausea and vomiting and inability to keep anything down. He has not taken any acetaminophen or ibuprofen because of the vomiting. He is having difficulty even keeping water down. Reports that he is just vomiting bile at this time and has burning in his epigastric area and chest from vomiting. He does not feel short of breath. He is not having abdominal pain. Related Data Home Medications ?Medication ?Instructions ?Recorded ?Confirmed ondansetron 4 mg disintegrating 4 mg PO Q8H PRN #10 tabs 08/27/24 tablet Previous Rx's ?Medication ?Instructions ?Recorded ondansetron 4 mg disintegrating 4 mg PO Q8H PRN #10 tabs 08/27/24 tablet Allergies Allergy/AdvReac Type Severity Reaction Status Date / Time No Known Allergies Allergy Verified 08/27/24 06:23 General KAREN: 3 Exam Narrative Exam Narrative: Const: WDWN male in NAD. VS per triage. HEENT: NC/AT. Normal facial exam. Neck: Supple. Trachea midline. Lungs: Normal respiratory effort. Lungs are clear. Cor: RRR without murmur. Good radial pulses. GI: Soft/ND/NT. Neuro: A+O x 3. Normal speech, mentation, gait. Cranial nerves II - XII grossly intact. No gross motor or sensory deficit. Ext: No C/C/E. Medical Decision Making Patient presenting to ED with flulike symptoms that also include nausea and vomiting for which he has been unable to take anything for his fever and bodyaches. Reports being unable to keep water down. Family members with flu and/or COVID. Will obtain [id number] testing for flu and COVID. Will give ondansetron ODT for nausea and vomiting and ketorolac IM. Patient is feeling better after ondansetron and ketorolac. [id number] testing for COVID and flu is negative at this time. Recommend discharge home to rest, hydrate. Ondansetron to be provided to help control further nausea vomiting. Alternate Tylenol with ibuprofen for pain and fever. Follow-up with primary care in the week if not doing better. Return to work after 24 hours of being afebrile without medications and feeling better. Return precautions provided. Lab Data Lab results reviewed: Yes I reviewed the patient's lab results. PFSH All Active Problems (Updated 08/27/24 @ 07:40 by Chad Georges MD) Influenza-like illness (Acute) Nausea vomiting and diarrhea (Acute) Social History Smoking/Tobacco Use Status: Former Tobacco Use Quit Date: 04/07/23 Smoking risk assessment performed?: Yes Alcohol Intake: current Alcohol Intake frequency: holidays/special occasions only Alcohol type: beer Drug use: Occasionally Substance use type: marijuana Housing: apartment Do you feel safe at home: Yes Do you feel safe in your relationship?: Yes
[2024-08-27 06:28] VITALS: BP 142/83; PULSE 110; RESP 20; TEMP 37.6; O2SAT 95
[2024-08-27] MEDS: Ondansetron O.D.T. 4 MG TABEF PO (06:45)
[2024-08-27] MEDS: Ketorolac 30 MG/ML VIAL IM (06:45)
[2024-08-27 08:05] VITALS: BP 131/77; PULSE 87; RESP 18; TEMP 37.2; O2SAT 96
== END 2024-08-27 08:10 | disposition home or self-care (01) ==
PROVIDERS: Emergency Provider Emergency Medicine
DX: J11.1 Influenza due to unidentified influenza virus with other respiratory manifestations (principal); Z87.891 Personal history of nicotine dependence
CPT/HCPCS: 87426; 99283; J1885